=== PATIENT | male | born 1990 | race Caucasian/White ===

== ENCOUNTER 2020-09-30 10:39 | Emergency (ER) | payer OTHER ==
[~2020-09-30] VITALS: Ht 170.2 cm; Wt 61.7 kg
[2020-09-30] MEDS ORDERED: diphenhydrAMINE HCL 50 MG/ML VIAL ONE (10:58)
[2020-09-30] MEDS ORDERED: EPINEPHRINE (1:1000) 1 MG/ML AMPUL ONE (10:58)
[2020-09-30] MEDS ORDERED: methylPREDNISolone SOD SUCC 125 MG/2ML VIAL ONE (10:58)
[2020-09-30] MEDS: methylPREDNISolone SOD SUCC 125 MG/2ML VIAL IV ONE (11:10)
[2020-09-30] MEDS: diphenhydrAMINE HCL 50 MG CAPSULE PO ONE (11:12)
[2020-09-30] MEDS: EPINEPHRINE (1:1000) MDV 30 MG/30ML VIAL SUBCUT ONE (11:13)
--- NOTE | 2020-09-30 11:22 | NUR ---
TO ER BED 3, C/O GENERALIZED HIVES AND ITCHING SINCE LAST NIGHT, SALINE LOCK ESTABLISHED, ATTACHED TO MONITOR, SEEN BY
--- NOTE | 2020-09-30 13:30 | NUR ---
FAMILY AT BEDSIDE, PT RESTING COMFORTABLY.
[2020-09-30 14:11] LABS: BASOPHILS % (AUTO) 0.1 % (0.0-2.0); EOSINOPHILS % (AUTO) 0.8 % (0.0-6.0); HEMATOCRIT 46 % (39-51); HEMOGLOBIN 15.8 g/dL (13.5-17.5); LYMPHOCYTES # (AUTO) 0.5 K/uL (0.8-4.8); LYMPHOCYTES % (AUTO) 5.3 % (20.0-44.0); MEAN CORPUSCULAR HGB CONC 35 g/dl (31.0-36.0); MEAN CORPUSCULAR VOLUME 90 fL (80-96); MONOCYTES # (AUTO) 0.1 K/uL (0.1-1.30); NEUTROPHILS % (AUTO) 92.8 % (43.0-81.0); PLATELET COUNT (AUTO) 304 K/uL (150-450); RED BLOOD CELL COUNT(AUTO) 5.12 MIL/uL (4.5-6.0); WHITE BLOOD COUNT (AUTO) 8.6 K/uL (4.3-11.0)
[2020-09-30 14:31] VITALS: BP 113/74
[2020-09-30] MEDS ORDERED: PRED20TA PO (15:00)
[2020-09-30] MEDS ORDERED: EPIN0.3P3 IJ (15:00)
[2020-09-30 15:05] LABS: CALCIUM, SERUM 8.8 mg/dL (8.5-10.1); CREATININE 1.1 mg/dL (0.6-1.3); POTASSIUM 4.3 mmol/L (3.5-5.1)
[2020-09-30 15:13] LABS: BILIRUBIN,TOTAL 0.7 mg/dL (0.2-1.0); TOTAL PROTEIN, SERUM 7.4 g/dL (6.4-8.2)
--- NOTE | 2020-09-30 15:30 | NUR ---
IV removed. Catheter intact and site benign. Pressure and 4x4 applied to site. No bleeding noted.Patient discharged to home in stable condition. Written and verbal after care instructions given. Patient verbalizes understanding of instruction.
== END 2020-09-30 15:31 | disposition home or self-care (01) ==
LOC: ER 10:39
DX: R21 Rash and other nonspecific skin eruption (principal)
CPT/HCPCS: 36415; 80053; 83605; 85025; 85610; 85652; 85730; 87040 ×2; 96372; 96374; 99285; J0171 ×2; J1200; J2930

== ENCOUNTER 2024-09-04 20:19 | Emergency (ER) | payer OTHER ==
[~2024-09-04] VITALS: Ht 177.8 cm; Wt 75.3 kg
[~2024-09-04 20:19] MED LIST: EPIN0.3P3 IJ; PRED20TA PO
[2024-09-04] MEDS ORDERED: LIDOCAINE 5% (PATCH) 1 EA PATCH TP ONE (20:46)
[2024-09-04] MEDS ORDERED: KETOROLAC TROMETHAMINE 15 MG/ML VIAL ONE (20:47)
[2024-09-04] MEDS: LIDOCAINE 5% (PATCH) 1 EA PATCH TP SCH (20:52)
[2024-09-04] MEDS: KETOROLAC TROMETHAMINE 15 MG/ML VIAL IM ONE (20:52)
[2024-09-04] MEDS ORDERED: LIDO30AD10 TP (20:54)
[2024-09-04 21:29] VITALS: BP 143/84; TEMP 98; O2SAT 95
== END 2024-09-04 21:30 | disposition home or self-care (01) ==
LOC: ER 20:24
DX: S42.017A Nondisplaced fracture of sternal end of right clavicle, initial encounter for closed fracture (principal); M25.511 Pain in right shoulder; Z79.52 Long term (current) use of systemic steroids; Z60.2 Problems related to living alone; Z79.899 Other long term (current) drug therapy; V89.9XXA Person injured in unspecified vehicle accident, initial encounter; Y93.89 Activity, other specified; Y92.89 Other specified places as the place of occurrence of the external cause; Y99.8 Other external cause status
CPT/HCPCS: 99283; 71045; 96372; J1885